=== PATIENT | female | born 1990 | race Caucasian/White ===

== ENCOUNTER 2016-04-21 21:05 | Emergency (ER) | payer SELFPAY ==
[~2016-04-21] VITALS: Ht 175.3 cm; Wt 73.1 kg
[2016-04-21] MEDS ORDERED: ED- HYDROcodone/ACETAMINOPHEN 5MG/325MG (NORCO) 6 TABLETS/BTL PO ONE (21:55)
[2016-04-21] MEDS ORDERED: ED- AMOXICILLIN 500 MG (POLYMOX) 6 CAPSULES/BTL PO ONE (21:55)
[2016-04-21] MEDS ORDERED: HYDR-3702 PO (22:00)
[2016-04-21] MEDS ORDERED: AMOX500C5 PO (22:00)
[2016-04-21 22:31] VITALS: BP 120/88
== END 2016-04-21 22:20 | disposition home or self-care (01) ==
LOC: ED 21:10 → EEVIPCON 21:10 → ED 22:20
DX: K04.7 Periapical abscess without sinus (principal)
CPT/HCPCS: 99282; 99283